=== PATIENT | female | born 1960 | race Caucasian/White ===

== ENCOUNTER → 2016-08-09 | Outpatient (CLI) | payer OTHER ==
[~2016-08-09] MED LIST: BUPIVACAINE HCL 0.25% 30 ML VIAL As Ordered ONE; ISOVUE-M 300 61% 15ML VIAL (Q9967) As Ordered ONE; LIDOCAINE 1% SDV INJ 30 ML VIAL As Ordered ONE; TRIAMCINOLONE ACETONIDE SUSP 40 MG/ML VIAL (J3301) As Ordered ONE; diazePAM 5 MG TAB As Ordered ONE; oxyCODONE 5MG TAB As Ordered ONE
--- NOTE | 2016-08-09 15:09 | REP ---
Partial SI joint series: Two views. History: Bilateral SI joint injection for pain. 9 seconds of fluoroscopy time is reported. Findings: A sequence of two fluoroscopically obtained intraprocedural spot radiographs document needle position and contrast injection for SI joint injection procedures. Signed by Felipe Bai MD 08/09/2016 03:35 P
--- NOTE | 2016-08-11 00:19 | ECWPNPC ---
PATIENT NAME: ONEYDA REYES : 1960 GENDER: FEMALE VISIT DATE: 08/09/2016 DISCHARGE DATE: 08/09/16 1306 VISIT LOCKED DATE TIME: PHYSICIAN: GRECIA SCOTT RESOURCE: GRECIA SCOTT REASON FOR APPOINTMENT 1. SIJ HISTORY OF PRESENT ILLNESS HISTORY OF PRESENT ILLNESS: PAIN THE PATIENT DESCRIBES THE PAIN... FALL RISK SCREENING: SCREENING :NO FALLS IN THE PAST YEAR CURRENT MEDICATIONS TAKING METOPROLOL TARTRATE 100 MG TABLET 1 TABLET WITH FOOD ORALLY TWICE A DAY, NOTES: 08/09 8AM TAKING TRIAMTERENE-HCTZ 37.5-25 MG TABLET 1 TABLET IN THE MORNING ORALLY ONCE A DAY, NOTES: 08/09 8AM TAKING LISINOPRIL 10 MG TABLET 1 TABLET ORALLY ONCE A DAY, NOTES: 08/09 8AM TAKING CITALOPRAM HYDROBROMIDE 20 MG TABLET 2 TABLETS ORALLY ONCE A DAY, NOTES: 08/09 8AM TAKING GABAPENTIN 300 MG CAPSULE 1 ORALLY 1 CAP AT BEDTIME, NOTES: 08/09 8AM TAKING ACETAMINOPHEN 500 MG CAPSULE TWO ORALLY AM AND PM, NOTES: 08/09 8AM TAKING SOMA 350 MG TABLET 1 TABLET NEEDED ORALLY ONE AT HS MDD1, NOTES: 08/09 8AM TAKING TIZANIDINE HCL 2 MG TABLET 1 TABLET NEEDED ORALLY FOR SPASMS AND PAIN BEFORE BEDTIME MAY REPEAR IN 4 HRS MDD2, NOTES: 08/09 8AM NOT-TAKING IBUPROFEN 200 MG CAPSULE 3 ORALLY AM AND PM NOT-TAKING VALIUM 10 MG TABLET 1 ORALLY 1 TAB PRE PROC. MDD1 MEDICATION LIST REVIEWED AND RECONCILED WITH THE PATIENT PAST MEDICAL HISTORY HYPERTENSION DEPRESSION SLEEP APNEA, NEVER TESTED ALLERGIES N.K.D.A. SOCIAL HISTORY GENERAL: TOBACCO USE ARE YOU A:NONSMOKER LEARNING BARRIERS / SPECIAL NEEDS ORIENTED TO PLAN OF CARE: PATIENT, PAIN MANAGEMENT PATIENT, ORIENTED TO PLAN OF CARE: PATIENT, PAIN MANAGEMENT PATIENT. NEW PATIENT PAIN DIARY TODAY'S VISITNOTES FROM 0-10, WHAT LEVEL IS YOUR PAIN TODAY?0 PAIN CLINIC PFS, CLERGY, PUBLIC HEALTH REFERRALS PFS REFERRAL NEEDED?NO CLERGY REFERRAL NEEDED?NO PUBLIC HEALTH REFERRAL NEEDED?NO WAS THE PROVIDER NOTIFIED OF ANY PERTINENT INFO?NO PFS REFERRAL NEEDED?NO CLERGY REFERRAL NEEDED?NO PUBLIC HEALTH REFERRAL NEEDED?NO WAS THE PROVIDER NOTIFIED OF ANY PERTINENT INFO?NO REVIEW OF SYSTEMS CONSTITUTIONAL: ANY CHANGE IN YOUR MEDICAL CONDITION? NO . CHILLS NO . FEVER NO . INFECTION: DO YOU HAVE NEW INFECTIONS? NO . DO YOU HAVE HISTORY OF MRSA? NO . MUSCULOSKELETAL: ANY NEW PATTERNS OF PAIN OR NUMBNESS? NO . GASTROENTEROLOGY: ANY NEW CHANGE IN BOWEL CONTROL? NO . GENITOURINARY: ANY NEW CHANGE IN BLADDER CONTROL? NO . IS THERE A CHANCE YOU COULD BE ? NO . HEMATOLOGY/LYMPH: DO YOU TAKE ANY BLOOD THINNERS? (FOR EXAMPLE- COUMADIN, PLAVIX, AGGRENOX, PLATEL, PRADAXA, OR XARELTO) NO . WHEN WAS YOUR LAST DOSE? DATE: TIME: . NEUROLOGY: HAVE YOU FALLEN IN THE PAST 6 MONTHS? NO . ANY NEW EXTREMITY NUMBNESS OR WEAKNESS? NO . CARDIOLOGY: DO YOU HAVE A PACEMAKER OR DEFIBRILLATOR? NO . RESPIRATORY: HAVE YOU BEEN SICK IN THE PAST WEEK? NO . FEVER NO . FLU LIKE SYMPTOMS? NO . COUGH NO . INTEGUMENTARY: DO YOU HAVE ANY RASHES OR OPEN SORES? NO . ALLERGIC/IMMUNO: ARE YOU ALLERGIC TO SHELLFISH OR IV DYE? NO . ANY NEW ALLERGIES? NO . PSYCHIATRIC: DO YOU HAVE THOUGHTS OF HURTING YOURSELF OR SOMEONE ELSE? NO . ARE YOU ABUSED, NEGLECTED, OR IN AN UNSAFE ENVIRONMENT? NO . ENDOCRINOLOGY: ARE YOU DIABETIC? NO . OTHER: DO YOU NEED ANY PRESCRIPTIONS? NO . IF YES, PLEASE LIST: ____ . ANY NEW PROBLEMS WITH YOUR MEDICATIONS? NO . WHEN DID YOU LAST EAT? 08/08 2PM . WHEN DID YOU LAST DRINK? :50AM . WHAT DID YOU LAST DRINK? WATER . NAME OF PERSON DRIVING YOU HOME? GEOVANNY . DO YOU HAVE ANY OTHER QUESTIONS OR CONCERNS PT STATES THAT SHE HAS HAD A TOOTH ACHE FOR LAST TWO WEEKS, NO ANTIBIOTICS TAKEN AT THIS TIME . REVIEWED BY: PROVIDER: . VITAL SIGNS WT 180 LBS, HT 64 IN, BMI 30.89 INDEX, BP 180/100 R ARM MANUAL, REPEAT BP 188/110 L ARM MANUAL, HR 64 /MIN, RR 16 /MIN, TEMP 96.0 F, OXYGEN SAT % 96, SAFE IN ENV? (Y/N) Y, NA INITIALS TL 1057, REVIEWED BY: DSHIGH BP, 180/100, 188/110 MANUAL- TL. ASSESSMENTS SACROILIITIS, NOT ELSEWHERE CLASSIFIED - M46.1 (PRIMARY) PROCEDURES PN SI PRE PROCEDURE DIAGNOSIS SACROILIITIS, SACROILIAC JOINT DYSFUNCTION POST PROCEDURE DIAGNOSIS SACROILIITIS, SACROILIAC JOINT DYSFUNCTION PROCEDURE BILATERAL SACROILIAC JOINT BLOCK SURGEON DR. GRECIA SCOTT HOME ADMINISTRATOR NONE ANESTHESIA LOCAL PRE PROCEDURE NOTE PATIENT WITH HISTORY OF CHRONIC LOW BACK PAIN. I EVALUATED THE PATIENT AND REVIEWED THE CHART. I WENT OVER THE RISKS, ALTERNATIVES, AND BENEFITS ASSOCIATED WITH THIS PROCEDURE. THE PATIENT WOULD LIKE TO PROCEED AND GAVE CONSENT TO PERFORM THE PROCEDURE. THE PATIENT DENIES UNEXPLAINABLE WEIGHT LOSS, FEVER, CHILLS, OR NEW CHANGES IN URINARY OR BOWEL CONTROL DESCRIPTION OF PROCEDURE THE PATIENT WAS BROUGHT TO THE PROCEDURE ROOM AND PLACED IN THE PRONE POSITION. THE LUMBOSACRAL AREA WAS CLEANED WITH CHLORAPREP SOLUTION AND DRAPED ASEPTICALLY. THE PROCEDURE WAS DONE UNDER STERILE CONDITIONS. I CHECKED LATERALITY AND THE LEVEL WHERE THE PROCEDURE WAS GOING TO BE PERFORMED WITH THE PATIENT AND THE SUPPORTING STAFF AT THE MOMENT OF THE TIME OUT IN THE PROCEDURE ROOM. UNDER FLUOROSCOPIC GUIDANCE, TARGET POINT WAS SELECTED AT THE LOWER BORDER OF THE RIGHT AND LEFT SACROILIAC JOINT. TARGET POINT WAS SELECTED AFTER MEDIAL ROTATION AND TILT OF THE MAGNIFIER OF THE C-ARM. LIDOCAINE WAS USED TO NUMB THE SKIN AND SUBCUTANEOUS TISSUE BELOW IT. A SPINAL NEEDLE, 22-GAUGE, WAS ADVANCED UNDER FLUOROSCOPIC GUIDANCE AND FOLLOWING PATIENT FEEDBACK UNTIL THE TARGET AREA WAS TOUCHED. THE POSITION OF THE NEEDLE WAS VERIFIED WITH AP AND LATERAL VIEWS. AFTER PROPER POSITION OF THE NEEDLE WAS ACHIEVED, ISOVUE M DYE 30%, 0.25 ML, WAS INJECTED SHOWING SPREAD OF THE DYE. THEN, A SOLUTION OF 20 MG OF KENALOG WAS INJECTED IN RIGHT JOINT WITH 3 ML OF BUPIVACAINE 0.125%. THERE WAS NO EVIDENCE OF BLOOD, PARESTHESIA OR CEREBROSPINAL FLUID DURING THE PROCEDURE. THE PATIENT WAS SENT TO THE RECOVERY ROOM. THE PATIENT WAS MOVING THE EXTREMITIES AND DOING WELL. THERE WAS NO COMPLICATION DURING THE PROCEDURE. FLUOROSCOPY TIME WAS 9 SECONDS POST PROCEDURE NOTE THE PATIENT WILL BE SEEN IN A FOLLOW UP IN THE NEXT FEW WEEKS. INSTRUCTIONS WERE GIVEN, QUESTIONS WERE ANSWERED, AND THE PATIENT EXPRESSED UNDERSTANDING AND AGREED WITH THE PLAN. I, ADRIENNE MERCEDES, DOCUMENTED THE ABOVE INFORMATION ACTING A SCRIBE FOR DR. SCOTT. I HAVE REVIEWED THE ABOVE DOCUMENT, WRITTEN BY ADRIENNE FARIA AND I VERIFY THAT IT IS ACCURATE PN WORKMANS' COMP OPINION IN YOUR OPINION, WAS THE INCIDENT THAT THE PATIENT DESCRIBED THE COMPETENT MEDICAL CAUSE OF THIS INJURY/ILLNESS? YES ARE THE PATIENT'S COMPLAINTS CONSISTENT WITH HIS/HER HISTORY OF THE INJURY/ILLNESS? YES IS THE PATIENT'S HISTORY OF THE INJURY/ILLNESS CONSISTENT WITH YOUR OBJECTIVE FINDING? YES WHAT IS THE PERCENTAGE OF TEMPORARY IMPAIRMENT? MODERATE TO MARKED = 66.7% IS THE PATIENT WORKING? NO DOCTOR ON SITE: GRECIA MAYES MD [facility] FLUORO GUIDANCE (PAIN)[id number] PROCEDURE CODES 33796 INJECT SACROILIAC JOINT 6045F RADXPS IN END [id number] PXD FOLLOW UP 3 WEEKS ELECTRONICALLY SIGNED BY GRECIA SCOTT MD ON 08/10/2016 AT 02:09 PM EST DISCLAIMER : THIS IS A VISIT SUMMARY EXTRACTED FROM THE [employer] CHART. IT IS NOT A COPY OF THE [employer] PROGRESS NOTE. RC
== END ==
LOC: M PAIN 10:50
PROVIDERS: ATTEND Anesthesiology
DX: G89.29 Other chronic pain (principal); M46.1 Sacroiliitis, not elsewhere classified; M53.88 Other specified dorsopathies, sacral and sacrococcygeal region; I10 Essential (primary) hypertension; F32.9 Major depressive disorder, single episode, unspecified; Z79.1 Long term (current) use of non-steroidal anti-inflammatories (NSAID); Z79.891 Long term (current) use of opiate analgesic; Z79.899 Other long term (current) drug therapy
CPT/HCPCS: G0260; J3301; Q9967

== ENCOUNTER → 2016-09-29 | Outpatient (CLI) | payer OTHER ==
--- NOTE | 2016-10-09 23:33 | ECWPNPC ---
PATIENT NAME: ONEYDA REYES : 1960 GENDER: FEMALE VISIT DATE: 09/29/2016 DISCHARGE DATE: 09/29/16 1137 VISIT LOCKED DATE TIME: PHYSICIAN: GRECIA SCOTT RESOURCE: GRECIA SCOTT REASON FOR APPOINTMENT 1. WC BACK PAIN HISTORY OF PRESENT ILLNESS HISTORY OF PRESENT ILLNESS: PAIN THE PATIENT DESCRIBES THE PAIN... 55 YEAR OLD FEMALE PATIENT WITH HISTORY OF CHRONIC BACK PAIN. PATIENT DESCRIBES THE PAIN BURNING, SHARP, STABBING, THROBBING, AND HAVING IT ALL THE TIME WITH A PAIN SCORE OF 8/10. 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 PATIENT RECEIVED A SACROILIAC JOINT INJECTION ON 08/09/16 AND STATES SHE HAD RELIEF FOR THREE DAYS. CURRENTLY THE PATIENT IS USING IBUPROFEN, TYLENOL, GABAPENTIN, SOMA, AND TIZANIDINE FOR PAIN AND STATES THAT THE MEDICATION KEEPS HER FUNCTIONAL AND MOBILE. PATIENT STATES THAT ANY TYPE OF MOVEMENT OR ACTIVITY INCREASES THE PAIN IN HER LOWER BACK AND MEDICATIONS AND REST HELP TO RELIEVE THE PAIN. FALL RISK SCREENING: SCREENING :NO FALLS IN THE PAST YEAR CURRENT MEDICATIONS TAKING METOPROLOL TARTRATE 100 MG TABLET 1 TABLET WITH FOOD ORALLY TWICE A DAY, NOTES: 08/09 8AM TAKING TRIAMTERENE-HCTZ 37.5-25 MG TABLET 1 TABLET IN THE MORNING ORALLY ONCE A DAY, NOTES: 08/09 8AM TAKING LISINOPRIL 10 MG TABLET 1 TABLET ORALLY ONCE A DAY, NOTES: 08/09 8AM TAKING CITALOPRAM HYDROBROMIDE 20 MG TABLET 2 TABLETS ORALLY ONCE A DAY, NOTES: 08/09 8AM TAKING GABAPENTIN 300 MG CAPSULE 1 ORALLY 1 CAP AT BEDTIME, NOTES: 08/09 8AM TAKING ACETAMINOPHEN 500 MG CAPSULE TWO ORALLY AM AND PM, NOTES: 08/09 8AM TAKING SOMA 350 MG TABLET 1 TABLET NEEDED ORALLY ONE AT HS MDD1, NOTES: 08/09 8AM TAKING TIZANIDINE HCL 2 MG TABLET 1 TABLET NEEDED ORALLY FOR SPASMS AND PAIN BEFORE BEDTIME MAY REPEAR IN 4 HRS MDD2, NOTES: 08/09 8AM TAKING METOPROLOL TARTRATE 50 MG TABLET 1 TABLET WITH FOOD ORALLY TWICE A DAY NOT-TAKING IBUPROFEN 200 MG CAPSULE 3 ORALLY AM AND PM NOT-TAKING VALIUM 10 MG TABLET 1 ORALLY 1 TAB PRE PROC. MDD1 MEDICATION LIST REVIEWED AND RECONCILED WITH THE PATIENT PAST MEDICAL HISTORY HYPERTENSION DEPRESSION SLEEP APNEA, NEVER TESTED ALLERGIES N.K.D.A. SURGICAL HISTORY NO SURGICAL HISTORY DOCUMENTED. FAMILY HISTORY NO FAMILY HISTORY DOCUMENTED. SOCIAL HISTORY GENERAL: TOBACCO USE ARE YOU A:NONSMOKER LEARNING BARRIERS / SPECIAL NEEDS ORIENTED TO PLAN OF CARE: PATIENT, PAIN MANAGEMENT PATIENT, ORIENTED TO PLAN OF CARE: PATIENT, PAIN MANAGEMENT PATIENT. NEW PATIENT PAIN DIARY TODAY'S VISITNOTES FROM 0-10, WHAT LEVEL IS YOUR PAIN TODAY?0 PAIN CLINIC PFS, CLERGY, PUBLIC HEALTH REFERRALS PFS REFERRAL NEEDED?NO CLERGY REFERRAL NEEDED?NO PUBLIC HEALTH REFERRAL NEEDED?NO WAS THE PROVIDER NOTIFIED OF ANY PERTINENT INFO?NO PFS REFERRAL NEEDED?NO CLERGY REFERRAL NEEDED?NO PUBLIC HEALTH REFERRAL NEEDED?NO WAS THE PROVIDER NOTIFIED OF ANY PERTINENT INFO?NO HOSPITALIZATION/MAJOR DIAGNOSTIC PROCEDURE NO HOSPITALIZATION HISTORY. REVIEW OF SYSTEMS CONSTITUTIONAL: ANY CHANGE IN YOUR MEDICAL CONDITION? NO . CHILLS NO . FEVER NO . INFECTION: DO YOU HAVE NEW INFECTIONS? NO . DO YOU HAVE HISTORY OF MRSA? NO . MUSCULOSKELETAL: ANY NEW PATTERNS OF PAIN OR NUMBNESS? NO . GASTROENTEROLOGY: ANY NEW CHANGE IN BOWEL CONTROL? NO . GENITOURINARY: ANY NEW CHANGE IN BLADDER CONTROL? NO . IS THERE A CHANCE YOU COULD BE ? NO . HEMATOLOGY/LYMPH: DO YOU TAKE ANY BLOOD THINNERS? (FOR EXAMPLE- COUMADIN, PLAVIX, AGGRENOX, PLATEL, PRADAXA, OR XARELTO) NO . WHEN WAS YOUR LAST DOSE? DATE: TIME: . NEUROLOGY: HAVE YOU FALLEN IN THE PAST 6 MONTHS? NO . ANY NEW EXTREMITY NUMBNESS OR WEAKNESS? NO . CARDIOLOGY: DO YOU HAVE A PACEMAKER OR DEFIBRILLATOR? NO . RESPIRATORY: HAVE YOU BEEN SICK IN THE PAST WEEK? NO . FEVER NO . FLU LIKE SYMPTOMS? NO . COUGH NO . INTEGUMENTARY: DO YOU HAVE ANY RASHES OR OPEN SORES? NO . ALLERGIC/IMMUNO: ARE YOU ALLERGIC TO SHELLFISH OR IV DYE? NO . ANY NEW ALLERGIES? NO . PSYCHIATRIC: DO YOU HAVE THOUGHTS OF HURTING YOURSELF OR SOMEONE ELSE? NO . ARE YOU ABUSED, NEGLECTED, OR IN AN UNSAFE ENVIRONMENT? NO . ENDOCRINOLOGY: ARE YOU DIABETIC? NO . OTHER: DO YOU NEED ANY PRESCRIPTIONS? NO . IF YES, PLEASE LIST: ____ . ANY NEW PROBLEMS WITH YOUR MEDICATIONS? NO . WHEN DID YOU LAST EAT? ____ . WHEN DID YOU LAST DRINK? ____ . WHAT DID YOU LAST DRINK? ____ . NAME OF PERSON DRIVING YOU HOME? ____ . DO YOU HAVE ANY OTHER QUESTIONS OR CONCERNS NO . REVIEWED BY: PROVIDER: GRECIA SCOTT MD . VITAL SIGNS WT 186.4 LBS, HT 64 IN, BMI 31.99 INDEX, BP 141/84 MM HG, HR 67 /MIN, RR 16 /MIN, TEMP 96.3 F, OXYGEN SAT % 98%, NA INITIALS SC 10:00, REVIEWED BY: VD. EXAMINATION : PATIENT IS ALERT O X 3 AND COOPERATIVE. TENDERNESS IN THE LOWER BACK AND PARASPINAL MUSCLE GROUP. TENDERNESS IN THE LEFT SACROILIAC JOINT AREA. FLEXION OF THE BACK 80 DEGREES IN FLEXION AND EXTENSION AT 10 DEGREE. MORE COMPLAINTS WITH EXTENSION THEN FLEXION. LEFT LEG WEAKER. MRI DONE ON 01/18/2016 OF THE LUMBAR SPINE SHOWS A DISC HERNIATION AT L5-S1 AND FACET HYPERTROPHY. ASSESSMENTS INTERVERTEBRAL DISC DISORDERS WITH RADICULOPATHY, LUMBOSACRAL REGION - M51.17 (PRIMARY) TREATMENT INTERVERTEBRAL DISC DISORDERS WITH RADICULOPATHY, LUMBOSACRAL REGION NOTES: WE DISCUSSED SEVERAL ISSUES WITH MRS. REYES PAIN MANAGEMENT CASE. PATIENT WILL CONTINUE WITH THE SAME MEDICATION REGIME BEFORE. PATIENT IS USING THE GABAPENTIN FOR THE NEUROPATHIC PAIN, TIZANIDINE NEEDED FOR THE SPASMS AND TO AID IN SLEEPING AT NIGHT, AND THE SOMA NEEDED FOR THE SPASTICITY. WITHOUT THE MEDICATION THE PATIENT STATES THAT SHE WOULD NOT BE ABLE TO FUNCTION. DUE TO THE DISC BULGE I WOULD LIKE TO MOVE FORWARD WITH A LUMBAR EPIDURAL. WE DISCUSSED THE RISKS, BENENFITS, AND ALTNERATIVES OF THE INJECTION AND THE PATIENT WOULD LIKE TO PROCEED AT THIS TIME. PATIENT STATES THAT SHE WOULD ALSO EVENTUALLY LIKE TO BE REFERRED FOR A SURGICAL CONSULT BUT NOT AT THIS TIME. INSTRUCTIONS WERE GIVEN, QUESTIONS WERE ANSWERED, PATIENT REPORTS UNDERSTANDING AND AGREES WITH THE PLAN. I, ADRIENNE MERCEDES, DOCUMENTED THE ABOVE INFORMATION ACTING A SCRIBE FOR DR. SCOTT. I HAVE REVIEWED THE ABOVE DOCUMENT, WRITTEN BY ADRIENNE FARIA AND I VERIFY THAT IT IS ACCURATE. PROCEDURES PN WORKMANS' COMP OPINION IN YOUR OPINION, WAS THE INCIDENT THAT THE PATIENT DESCRIBED THE COMPETENT MEDICAL CAUSE OF THIS INJURY/ILLNESS? YES ARE THE PATIENT'S COMPLAINTS CONSISTENT WITH HIS/HER HISTORY OF THE INJURY/ILLNESS? YES IS THE PATIENT'S HISTORY OF THE INJURY/ILLNESS CONSISTENT WITH YOUR OBJECTIVE FINDING? YES WHAT IS THE PERCENTAGE OF TEMPORARY IMPAIRMENT? MODERATE TO MARKED = 66.7% IS THE PATIENT WORKING? NO DOCTOR ON SITE: GRECIA MAYES MD PROCEDURE CODES FA211 ESTABILISHED PATIENT [facility] FACILITY CHARGE G8427 DOC MEDS VERIFIED W/PT OR RE G8730 PAIN ASSESS POS TOOL F/U PLAN DOC DISPOSITION & COMMUNICATION FOLLOW UP LESI AFTER APPROVAL ELECTRONICALLY SIGNED BY GRECIA SCOTT MD ON 10/09/2016 AT 09:12 PM EDT DISCLAIMER : THIS IS A VISIT SUMMARY EXTRACTED FROM THE [employer] CHART. IT IS NOT A COPY OF THE [employer] PROGRESS NOTE. RC
== END ==
LOC: M PAIN 10:00
PROVIDERS: ATTEND Anesthesiology
DX: Z09 Encounter for follow-up examination after completed treatment for conditions other than malignant neoplasm (principal); G89.29 Other chronic pain; M51.17 Intervertebral disc disorders with radiculopathy, lumbosacral region; I10 Essential (primary) hypertension; E32.9 Disease of thymus, unspecified; G47.30 Sleep apnea, unspecified; Z79.1 Long term (current) use of non-steroidal anti-inflammatories (NSAID); Z79.899 Other long term (current) drug therapy

== ENCOUNTER → 2016-11-29 | Outpatient (CLI) | payer OTHER ==
--- NOTE | 2016-12-11 23:50 | ECWPNPC ---
PATIENT NAME: ONEYDA REYES : 1960 GENDER: FEMALE VISIT DATE: 11/29/2016 DISCHARGE DATE: 11/29/16 1357 VISIT LOCKED DATE TIME: PHYSICIAN: GRECIA SCOTT RESOURCE: GRECIA SCOTT REASON FOR APPOINTMENT 1. LOW BACK PAIN W/C HISTORY OF PRESENT ILLNESS GENERAL: 55 YEAR OLD FEMALE PATIENT WITH HISTORY OF CHRONIC BACK PAIN. PATIENT DESCRIBES THE PAIN BURNING, SHARP, STABBING, THROBBING, AND HAVING IT ALL THE TIME WITH A PAIN SCORE OF 8/10. 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 CURRENTLY THE PATIENT IS USING IBUPROFEN, TYLENOL, AND GABAPENTIN FOR PAIN AND STATES THAT THE MEDICATION KEEPS HER FUNCTIONAL AND MOBILE. MRS. REYES STATES THAT SHE DOES NOT WANT TO MOVE FORWARD WITH A LUMBAR EPIDURAL SHE HAS HAD BEEN BEFORE AND STATES THAT THEY DO NOT AID IN PAIN RELIEF. PATIENT STATES THAT ANY TYPE OF MOVEMENT OR ACTIVITY INCREASES THE PAIN IN HER LOWER BACK AND MEDICATIONS AND REST HELP TO RELIEVE THE PAIN. CURRENT MEDICATIONS TAKING METOPROLOL TARTRATE 100 MG TABLET 1 TABLET WITH FOOD ORALLY TWICE A DAY, NOTES: 08/09 8AM TAKING TRIAMTERENE-HCTZ 37.5-25 MG TABLET 1 TABLET IN THE MORNING ORALLY ONCE A DAY, NOTES: 08/09 8AM TAKING LISINOPRIL 10 MG TABLET 1 TABLET ORALLY ONCE A DAY, NOTES: 08/09 8AM TAKING CITALOPRAM HYDROBROMIDE 20 MG TABLET 2 TABLETS ORALLY ONCE A DAY, NOTES: 08/09 8AM TAKING GABAPENTIN 300 MG CAPSULE 1 ORALLY 1 CAP AT BEDTIME, NOTES: 08/09 8AM TAKING ACETAMINOPHEN 500 MG CAPSULE TWO ORALLY AM AND PM, NOTES: 08/09 8AM TAKING SOMA 350 MG TABLET 1 TABLET NEEDED ORALLY ONE AT HS MDD1, NOTES: 08/09 8AM TAKING TIZANIDINE HCL 2 MG TABLET 1 TABLET NEEDED ORALLY FOR SPASMS AND PAIN BEFORE BEDTIME MAY REPEAR IN 4 HRS MDD2, NOTES: 08/09 8AM TAKING METOPROLOL TARTRATE 50 MG TABLET 1 TABLET WITH FOOD ORALLY TWICE A DAY NOT-TAKING IBUPROFEN 200 MG CAPSULE 3 ORALLY AM AND PM NOT-TAKING VALIUM 10 MG TABLET 1 ORALLY 1 TAB PRE PROC. MDD1 MEDICATION LIST REVIEWED AND RECONCILED WITH THE PATIENT PAST MEDICAL HISTORY HYPERTENSION DEPRESSION SLEEP APNEA, NEVER TESTED ALLERGIES N.K.D.A. SURGICAL HISTORY NO SURGICAL HISTORY DOCUMENTED. FAMILY HISTORY NO FAMILY HISTORY DOCUMENTED. SOCIAL HISTORY GENERAL: TOBACCO USE ARE YOU A:NONSMOKER LEARNING BARRIERS / SPECIAL NEEDS ORIENTED TO PLAN OF CARE: PATIENT, PAIN MANAGEMENT PATIENT, ORIENTED TO PLAN OF CARE: PATIENT, PAIN MANAGEMENT PATIENT. NEW PATIENT PAIN DIARY TODAY'S VISITNOTES FROM 0-10, WHAT LEVEL IS YOUR PAIN TODAY?0 PAIN CLINIC PFS, CLERGY, PUBLIC HEALTH REFERRALS PFS REFERRAL NEEDED?NO CLERGY REFERRAL NEEDED?NO PUBLIC HEALTH REFERRAL NEEDED?NO WAS THE PROVIDER NOTIFIED OF ANY PERTINENT INFO?NO PFS REFERRAL NEEDED?NO CLERGY REFERRAL NEEDED?NO PUBLIC HEALTH REFERRAL NEEDED?NO WAS THE PROVIDER NOTIFIED OF ANY PERTINENT INFO?NO HOSPITALIZATION/MAJOR DIAGNOSTIC PROCEDURE NO HOSPITALIZATION HISTORY. VITAL SIGNS WT 180.8 LBS, HT 64 IN, BMI 31.03 INDEX, BP 127/74 MM HG, HR 63 /MIN, RR 16 /MIN, TEMP 98.3 F, OXYGEN SAT % 99%, NA INITIALS TL 1253. EXAMINATION GENERAL: PATIENT IS ALERT O X 3 AND COOPERATIVE. TENDERNESS IN THE LOWER BACK AND PARASPINAL MUSCLE GROUP. TENDERNESS IN THE LEFT SACROILIAC JOINT AREA. FLEXION OF THE BACK 15 DEGREES IN FLEXION AND EXTENSION AT 10 DEGREE. MORE COMPLAINTS WITH EXTENSION THEN FLEXION. LEFT LEG WEAKER. MRI DONE ON 01/18/2016 OF THE LUMBAR SPINE SHOWS A DISC HERNIATION AT L5-S1 AND FACET HYPERTROPHY. ASSESSMENTS INTERVERTEBRAL DISC DISORDERS WITH RADICULOPATHY, LUMBAR REGION - M51.16 (PRIMARY) INTERVERTEBRAL DISC DISORDERS WITH RADICULOPATHY, LUMBOSACRAL REGION - M51.17 SACROILIITIS, NOT ELSEWHERE CLASSIFIED - M46.1 TREATMENT INTERVERTEBRAL DISC DISORDERS WITH RADICULOPATHY, LUMBAR REGION REFILL GABAPENTIN CAPSULE, 300 MG, 1, ORALLY, 1 CAP AT BEDTIME, 30 DAY(S), 30, REFILLS 2, NOTES: 08/09 8AM REFILL TIZANIDINE HCL TABLET, 4 MG, 1 TABLET NEEDED, ORALLY, BEFORE BEDTIME MAY REPEAR IN 4 HRS MDD2, 30 DAY(S), 50, REFILLS 2, NOTES: 08/09 8AM START IBUPROFEN TABLET, 800 MG, 1 TABLET WITH FOOD OR MILK, ORALLY, EVERY 6 HRS NEEDED FOR PAIN MDD3, 30 DAY(S), 60, REFILLS 2 NOTES: LUMBAR EPIDURAL INJECTION: YOUR PROCEDURE MATERIAL WAS PRINTED,WHAT IS LUMBAR EPIDURAL INJECTION? MATERIAL WAS PRINTED. CLINICAL NOTES: WE DISCUSSED SEVERAL ISSUES WITH MRS. REYES PAIN MANAGEMENT CASE. AT THIS TIME THE PATIENT WILL CONTINUE WITH THE SAME MEDICATION REGIME BEFORE. PATIENT STATES THAT SHE USES IBUPROFEN FOR THE INFLAMMATION AND GABAPENTIN FOR THE NEUROPATHIC PAIN. WE DISCUSSED POSSIBLE INJECTIONS THAT MAY AID THE PATIENT IN PAIN RELIEF HER PAIN IS GETTING SEVERE AND IT IS DIFFICULT TO DO EVERYDAY THINGS AT THIS TIME. AFTER VIEWING THE MRI AND WHERE THE PATIENT'S PAIN IS LOCATED I BELIEVE SHE WOULD BENEFIT MOST FROM A LUMBAR EPIDURAL. WE DISCUSSED THE RISKS, BENEFITS, AND ALTNERATIVES OF THE INJECTION AND THE PATIENT WOULD LIKE TO MOVE FORWARD WITH THE INJECTION. INSTRUCTIONS WERE GIVEN, QUESTIONS WERE ANSWERED, PATIENT REPORTS UNDERSTANDING AND AGREES WITH THE PLAN. I, ADRIENNE MERCEDES, DOCUMENTED THE ABOVE INFORMATION ACTING A SCRIBE FOR DR. SCOTT. I HAVE REVIEWED THE ABOVE DOCUMENT, WRITTEN BY ADRIENNE VALLEJOIBSangita AND I VERIFY THAT IT IS ACCURATE. PROCEDURES PN WORKMANS' COMP OPINION IN YOUR OPINION, WAS THE INCIDENT THAT THE PATIENT DESCRIBED THE COMPETENT MEDICAL CAUSE OF THIS INJURY/ILLNESS? YES ARE THE PATIENT'S COMPLAINTS CONSISTENT WITH HIS/HER HISTORY OF THE INJURY/ILLNESS? YES IS THE PATIENT'S HISTORY OF THE INJURY/ILLNESS CONSISTENT WITH YOUR OBJECTIVE FINDING? YES WHAT IS THE PERCENTAGE OF TEMPORARY IMPAIRMENT? MODERATE TO MARKED = 66.7% IS THE PATIENT WORKING? NO DOCTOR ON SITE: GRECIA MAYES MD PROCEDURE CODES FA211 ESTABILISHED PATIENT [facility] FACILITY CHARGE G8427 DOC MEDS VERIFIED W/PT OR RE G8730 PAIN ASSESS POS TOOL F/U PLAN DOC DISPOSITION & COMMUNICATION FOLLOW UP LESI AFTER APPROVAL ELECTRONICALLY SIGNED BY GRECIA SCOTT MD ON 12/11/2016 AT 06:43 PM EDT DISCLAIMER : THIS IS A VISIT SUMMARY EXTRACTED FROM THE [employer] CHART. IT IS NOT A COPY OF THE [employer] PROGRESS NOTE. RC
== END | disposition home or self-care (01) ==
LOC: M PAIN 13:00
PROVIDERS: ATTEND Anesthesiology
DX: G89.29 Other chronic pain (principal); M51.16 Intervertebral disc disorders with radiculopathy, lumbar region; M51.17 Intervertebral disc disorders with radiculopathy, lumbosacral region; M46.1 Sacroiliitis, not elsewhere classified; I10 Essential (primary) hypertension; F33.9 Major depressive disorder, recurrent, unspecified; G47.30 Sleep apnea, unspecified; Z79.899 Other long term (current) drug therapy

== ENCOUNTER → 2017-01-07 | Outpatient (CLI) | payer OTHER ==
[~2017-01-07] MED LIST changes: -BUPIVACAINE HCL 0.25% 30 ML VIAL As Ordered ONE; -TRIAMCINOLONE ACETONIDE SUSP 40 MG/ML VIAL (J3301) As Ordered ONE; -diazePAM 5 MG TAB As Ordered ONE; +methylPREDNISolone SUSP 40 MG/ML (DEPO-medrol) VIAL (J1030) As Ordered ONE; -oxyCODONE 5MG TAB As Ordered ONE
--- NOTE | 2017-01-07 15:47 | REP ---
FLUOROSCOPIC GUIDED SPINAL INJECTION: The films were reviewed with Dr. Contreras. The patient has a history of low back pain. The portable C-arm was provided in the OR for Dr. Pearce for fluoroscopic guidance. Four intraoperative fluoroscopic spot films were obtained for needle placement verification for lumbar epidural injection. The films are on the PACs system and are available for review. 11 seconds of fluoroscopic time was utilized for this procedure. Reviewed by TERRI Ramos 01/07/2017 03:57 PEdited and Signed by Pancho Contreras MD 01/07/2017 05:29 P
--- NOTE | 2017-01-13 23:46 | ECWPNPC ---
PATIENT NAME: ONEYDA REYES : 1960 GENDER: FEMALE VISIT DATE: 01/07/2017 DISCHARGE DATE: 01/07/17 1254 VISIT LOCKED DATE TIME: PHYSICIAN: GRECIA SCOTT RESOURCE: GRECIA SCOTT REASON FOR APPOINTMENT 1. BACK PAIN HISTORY OF PRESENT ILLNESS HISTORY OF PRESENT ILLNESS: PAIN THE PATIENT DESCRIBES THE PAIN... FALL RISK SCREENING: SCREENING :NO FALLS IN THE PAST YEAR CURRENT MEDICATIONS TAKING METOPROLOL TARTRATE 100 MG TABLET 1 TABLET WITH FOOD ORALLY TWICE A DAY, NOTES: 01/07/17 0700 TAKING TRIAMTERENE-HCTZ 37.5-25 MG TABLET 1 TABLET IN THE MORNING ORALLY ONCE A DAY, NOTES: 01/07/17 0700 TAKING LISINOPRIL 10 MG TABLET 1 TABLET ORALLY ONCE A DAY, NOTES: 01/07/17 07 TAKING CITALOPRAM HYDROBROMIDE 20 MG TABLET 2 TABLETS ORALLY ONCE A DAY, NOTES: 01/07/17 0700 TAKING ACETAMINOPHEN 500 MG CAPSULE TWO ORALLY AM AND PM, NOTES: 01/06/17 1700 TAKING SOMA 350 MG TABLET 1 TABLET NEEDED ORALLY ONE AT HS MDD1, NOTES: 01/07/16 2100 TAKING METOPROLOL TARTRATE 50 MG TABLET 1 TABLET WITH FOOD ORALLY TWICE A DAY, NOTES: 0700 TAKING GABAPENTIN 300 MG CAPSULE 1 ORALLY 1 CAP AT BEDTIME, NOTES: 01/06/17 2100 TAKING TIZANIDINE HCL 4 MG TABLET 1 TABLET NEEDED ORALLY BEFORE BEDTIME MAY REPEAR IN 4 HRS MDD2, NOTES: 01/06 2100 NOT-TAKING IBUPROFEN 800 MG TABLET 1 TABLET WITH FOOD OR MILK ORALLY EVERY 6 HRS NEEDED FOR PAIN MDD3 NOT-TAKING IBUPROFEN 200 MG CAPSULE 3 ORALLY AM AND PM NOT-TAKING VALIUM 10 MG TABLET 1 ORALLY 1 TAB PRE PROC. MDD1 MEDICATION LIST REVIEWED AND RECONCILED WITH THE PATIENT PAST MEDICAL HISTORY HYPERTENSION DEPRESSION SLEEP APNEA, NEVER TESTED ALLERGIES N.K.D.A. REVIEW OF SYSTEMS REVIEWED BY: PROVIDER: . CONSTITUTIONAL: ANY CHANGE IN YOUR MEDICAL CONDITION? NO . CHILLS NO . FEVER NO . INFECTION: DO YOU HAVE NEW INFECTIONS? NO . DO YOU HAVE HISTORY OF MRSA? NO . MUSCULOSKELETAL: ANY NEW PATTERNS OF PAIN OR NUMBNESS? NO . GASTROENTEROLOGY: ANY NEW CHANGE IN BOWEL CONTROL? NO . GENITOURINARY: ANY NEW CHANGE IN BLADDER CONTROL? NO . IS THERE A CHANCE YOU COULD BE ? NO . HEMATOLOGY/LYMPH: DO YOU TAKE ANY BLOOD THINNERS? (FOR EXAMPLE- COUMADIN, PLAVIX, AGGRENOX, PLATEL, PRADAXA, OR XARELTO) NO . WHEN WAS YOUR LAST DOSE? DATE: TIME: . NEUROLOGY: HAVE YOU FALLEN IN THE PAST 6 MONTHS? NO . ANY NEW EXTREMITY NUMBNESS OR WEAKNESS? NO . CARDIOLOGY: DO YOU HAVE A PACEMAKER OR DEFIBRILLATOR? NO . RESPIRATORY: HAVE YOU BEEN SICK IN THE PAST WEEK? NO . FEVER NO . FLU LIKE SYMPTOMS? NO . COUGH NO . INTEGUMENTARY: DO YOU HAVE ANY RASHES OR OPEN SORES? NO . ALLERGIC/IMMUNO: ARE YOU ALLERGIC TO SHELLFISH OR IV DYE? NO . ANY NEW ALLERGIES? NO . PSYCHIATRIC: DO YOU HAVE THOUGHTS OF HURTING YOURSELF OR SOMEONE ELSE? NO . ARE YOU ABUSED, NEGLECTED, OR IN AN UNSAFE ENVIRONMENT? NO . ENDOCRINOLOGY: ARE YOU DIABETIC? NO . OTHER: DO YOU NEED ANY PRESCRIPTIONS? NO . IF YES, PLEASE LIST: ____ . ANY NEW PROBLEMS WITH YOUR MEDICATIONS? NO . WHEN DID YOU LAST EAT? 01/06/17 1900 . WHEN DID YOU LAST DRINK? 01/07/17 0700 . WHAT DID YOU LAST DRINK? WATER . NAME OF PERSON DRIVING YOU HOME? FRIEND, GEOVANNY . DO YOU HAVE ANY OTHER QUESTIONS OR CONCERNS NO . VITAL SIGNS WT 177.0 LBS, HT 64 IN, BMI 30.38 INDEX, BP 117/63 MM HG, HR 60 /MIN, RR 16 /MIN, TEMP 97.3 F, OXYGEN SAT % 98%, NA INITIALS TL 0951, REVIEWED BY: AD. ASSESSMENTS INTERVERTEBRAL DISC DISORDERS WITH RADICULOPATHY, LUMBAR REGION - M51.16 (PRIMARY) PROCEDURES PRE PROCEDURE DIAGNOSIS LUMBAR DISC DISORDER WITH RADICULOPATHY POST PROCEDURE DIAGNOSIS LUMBAR DISC DISORDER WITH RADICULOPATHY PROCEDURE LUMBAR EPIDURAL STEROID INJECTION UNDER FLUOROSCOPIC GUIDANCE SURGEON DR. GRECIA SCOTT RADIATION PROTECTION TECHNICIAN NONE ANESTHESIA LOCAL PRE PROCEDURE NOTE THE PATIENT HAS A HISTORY OF CHRONIC LOW BACK PAIN. I EVALUATE THE PATIENT AND REVIEWED THE CHART. I WENT OVER THE RISKS, ALTERNATIVES, AND BENEFITS ASSOCIATED WITH THIS PROCEDURE. THE PATIENT WOULD LIKE TO PROCEED AND GIVE CONSENT TO PERFORMED THE PROCEDURE. THE PATIENT DENIES UNEXPLAINABLE WEIGHT LOSS, FEVER, CHILLS, OR NEW CHANGES IN URINARY OR BOWEL CONTROL. DESCRIPTION OF PROCEDURE THE PATIENT WAS BROUGHT TO THE PROCEDURE ROOM AND PLACED IN THE PRONE POSITION. THE LUMBOSACRAL AREA WAS CLEANED WITH BETADINE SOLUTION AND DRAPED ASEPTICALLY. THE PROCEDURE WAS DONE UNDER STERILE CONDITIONS. I CHECKED LATERALITY AND THE LEVEL WHERE THE PROCEDURE WAS GOING TO BE PERFORMED WITH THE PATIENT AND THE SUPPORTING STAFF AT THE MOMENT OF THE TIME OUT IN THE PROCEDURE ROOM. UNDER FLUOROSCOPIC GUIDANCE, THE TARGET POINT WAS SELECTED AT THE INTERLAMINAR LEVEL OF L4-L5. LIDOCAINE WAS USED TO NUMB THE SKIN AND THE SUBCUTANEOUS TISSUE BELOW IT. EPIDURAL TUOHY NEEDLE, 17-GAUGE, WAS ADVANCED UNDER FLUOROSCOPIC GUIDANCE AND FOLLOWING PATIENT FEEDBACK UNTIL THE EPIDURAL SPACE WAS REACHED, 7 CM DEEP INTO THE SKIN BY THE LOSS OF RESISTANCE TECHNIQUE. ISOVUE M DYE 30%, 0.25 ML, WAS INJECTED SHOWING ADEQUATE SPREAD OF THE DYE. THEN, A SOLUTION OF 3 ML OF NORMAL SALINE WITH DEPO-MEDROL 60 MG WAS INJECTED SLOWLY FOLLOWING PATIENT FEEDBACK. THERE WAS NO EVIDENCE OF BLOOD, PARESTHESIA OR CEREBROSPINAL FLUID DURING THE PROCEDURE. THE PATIENT WAS SENT TO THE RECOVERY ROOM. THE PATIENT WAS MOVING THE EXTREMITIES AND DOING WELL. THERE WAS NO COMPLICATION DURING THE PROCEDURE. FLUOROSCOPY TIME WAS 11 SECONDS POST PROCEDURE NOTE THE PATIENT WILL BE SEEN IN A FOLLOW UP IN THE NEXT FEW WEEKS. INSTRUCTIONS WERE GIVEN, QUESTIONS WERE ANSWERED, AND THE PATIENT EXPRESSED UNDERSTANDING AND AGREES WITH THE PLAN. I, ADRIENNE MERCEDES, DOCUMENTED THE ABOVE INFORMATION ACTING A SCRIBE FOR DR. SCOTT. I HAVE REVIEWED THE ABOVE DOCUMENT, WRITTEN BY ADRIENNE VALLEJOIBSangita AND I VERIFY THAT IT IS ACCURATE DIAGNOSTIC IMAGING [facility] FLUORO GUIDANCE (PAIN)[id number] PROCEDURE CODES 10520 LUMBAR/SACRAL W/ IMAGING 6045F RADXPS IN END [id number] PXD DISPOSITION & COMMUNICATION FOLLOW UP 3 WEEKS ELECTRONICALLY SIGNED BY GRECIA SCOTT MD ON 01/13/2017 AT 11:11 AM EDT DISCLAIMER : THIS IS A VISIT SUMMARY EXTRACTED FROM THE [employer] CHART. IT IS NOT A COPY OF THE [employer] PROGRESS NOTE. MTDD
== END | disposition home or self-care (01) ==
LOC: M PAIN 10:00
PROVIDERS: ATTEND Anesthesiology
DX: G89.29 Other chronic pain (principal); M51.16 Intervertebral disc disorders with radiculopathy, lumbar region; I10 Essential (primary) hypertension; F33.9 Major depressive disorder, recurrent, unspecified; Z79.899 Other long term (current) drug therapy
CPT/HCPCS: 62323; J1030; Q9967

== ENCOUNTER → 2017-02-25 | Outpatient (CLI) | payer OTHER ==
--- NOTE | 2017-03-14 00:26 | ECWPNPC ---
PATIENT NAME: ONEYDA REYES : 1960 GENDER: FEMALE VISIT DATE: 02/25/2017 DISCHARGE DATE: 02/25/17 1113 VISIT LOCKED DATE TIME: PHYSICIAN: GRECIA SCOTT RESOURCE: GRECIA SCOTT REASON FOR APPOINTMENT 1. WC, LOW BACK PAIN HISTORY OF PRESENT ILLNESS GENERAL: 56 YEAR OLD FEMALE PATIENT WITH HISTORY OF CHRONIC BACK PAIN. PATIENT DESCRIBES THE PAIN BURNING, SHARP, STABBING, THROBBING, AND HAVING IT ALL THE TIME WITH A PAIN SCORE OF 10/10. 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. CURRENTLY THE PATIENT IS USING IBUPROFEN, TYLENOL, AND GABAPENTIN FOR PAIN AND STATES THAT THE MEDICATION KEEPS HER FUNCTIONAL AND MOBILE. PATIENT STATES THAT ANY TYPE OF MOVEMENT OR ACTIVITY INCREASES THE PAIN IN HER LOWER BACK AND MEDICATIONS AND REST HELP TO RELIEVE THE PAIN. CURRENT MEDICATIONS TAKING METOPROLOL TARTRATE 100 MG TABLET 1 TABLET WITH FOOD ORALLY TWICE A DAY, NOTES: 01/07/17 07 TAKING TRIAMTERENE-HCTZ 37.5-25 MG TABLET 1 TABLET IN THE MORNING ORALLY ONCE A DAY, NOTES: 01/07/17 07 TAKING LISINOPRIL 10 MG TABLET 1 TABLET ORALLY ONCE A DAY, NOTES: 01/07/17 07 TAKING CITALOPRAM HYDROBROMIDE 20 MG TABLET 1 TAB ORALLY ONCE A DAY, NOTES: 01/07/17 0700 TAKING ACETAMINOPHEN 500 MG CAPSULE TWO ORALLY AM AND PM, NOTES: 01/06/17 1700 TAKING SOMA 350 MG TABLET 1 TABLET NEEDED ORALLY ONE AT HS MDD1, NOTES: 01/07/162099 TAKING METOPROLOL TARTRATE 50 MG TABLET 1 TABLET WITH FOOD ORALLY TWICE A DAY, NOTES: 0700 TAKING GABAPENTIN 300 MG CAPSULE 1 ORALLY 1 CAP AT BEDTIME, NOTES: 01/06/172099 NOT-TAKING TIZANIDINE HCL 4 MG TABLET 1 TABLET NEEDED ORALLY BEFORE BEDTIME MAY REPEAR IN 4 HRS MDD2, NOTES: 01/06 NOT-TAKING IBUPROFEN 800 MG TABLET 1 TABLET WITH FOOD OR MILK ORALLY EVERY 6 HRS NEEDED FOR PAIN MDD3 NOT-TAKING IBUPROFEN 200 MG CAPSULE 3 ORALLY AM AND PM NOT-TAKING VALIUM 10 MG TABLET 1 ORALLY 1 TAB PRE PROC. MDD1 MEDICATION LIST REVIEWED AND RECONCILED WITH THE PATIENT PAST MEDICAL HISTORY HYPERTENSION DEPRESSION SLEEP APNEA, NEVER TESTED ALLERGIES N.K.D.A. VITAL SIGNS WT 176.6 LBS, HT 64 IN, BMI 30.31 INDEX, BP 118/67 MM HG, HR 65 /MIN, RR 18 /MIN, TEMP 98.3 F, OXYGEN SAT % 176.6, NA INITIALS SC 09:27, REVIEWED BY: VD. EXAMINATION GENERAL: PATIENT IS ALERT O X 3 AND COOPERATIVE. TENDERNESS IN THE LOWER BACK AND PARASPINAL MUSCLE GROUP. TENDERNESS IN THE LEFT SACROILIAC JOINT AREA. FLEXION OF THE BACK 15 DEGREES IN FLEXION AND EXTENSION AT 10 DEGREE. MORE COMPLAINTS WITH EXTENSION THEN FLEXION. LEFT LEG WEAKER. MRI DONE ON 01/18/2016 OF THE LUMBAR SPINE SHOWS A DISC HERNIATION AT L5-S1 AND FACET HYPERTROPHY. ASSESSMENTS SACROILIITIS, NOT ELSEWHERE CLASSIFIED - [id number] (PRIMARY) INTERVERTEBRAL DISC DISORDERS WITH RADICULOPATHY, LUMBAR REGION - M51.16 INTERVERTEBRAL DISC DISORDERS WITH RADICULOPATHY, LUMBOSACRAL REGION - M51.17 TREATMENT SACROILIITIS, NOT ELSEWHERE CLASSIFIED NOTES: WE DISCUSSED SEVERAL ISSUES WITH MRS. REYES PAIN MANAGEMENT CASE. AT THIS TIME THE PATIENT WILL CONTINUE WITH THE SAME MEDICATION REGIME BEFORE. PATIENT STATES THAT SHE USES IBUPROFEN FOR THE INFLAMMATION AND GABAPENTIN FOR THE NEUROPATHIC PAIN. WE DISCUSSED SEVERAL INJECTIONS THAT MAY AID THE PATIENT IN PAIN RELIEF INCLUDING A LUMBAR TRANSFORAMINAL. AT THIS TIME THE PATIENT STATES SHE DOES NOT WANT TO MOVE FORWARD WITH AN INJECTION BUT WILL CONSIDER DOING ON IN THE FUTURE. PATIENT WILL FOLLOW UP IN 2 MONTHS AND WAS ADVISED TO CALL IF THE PAIN SIGNIFICANTLY INCREASES. INSTRUCTIONS WERE GIVEN, QUESTIONS WERE ANSWERED, PATIENT REPORTS UNDERSTANDING AND AGREES WITH THE PLAN. I, ADRIENNE MERCEDES, DOCUMENTED THE ABOVE INFORMATION ACTING A SCRIBE FOR DR. SCOTT. I HAVE REVIEWED THE ABOVE DOCUMENT, WRITTEN BY ADRIENNE FARIA AND I VERIFY THAT IT IS ACCURATE. OTHERS NOTES: LUMBAR EPIDURAL INJECTION: RECOVERY AT HOME MATERIAL WAS PRINTED,WHAT IS LUMBAR EPIDURAL INJECTION? MATERIAL WAS PRINTED,LUMBAR EPIDURAL INJECTION: YOUR PROCEDURE MATERIAL WAS PRINTED. PROCEDURES PN WORKMANS' COMP OPINION IN YOUR OPINION, WAS THE INCIDENT THAT THE PATIENT DESCRIBED THE COMPETENT MEDICAL CAUSE OF THIS INJURY/ILLNESS? YES ARE THE PATIENT'S COMPLAINTS CONSISTENT WITH HIS/HER HISTORY OF THE INJURY/ILLNESS? YES IS THE PATIENT'S HISTORY OF THE INJURY/ILLNESS CONSISTENT WITH YOUR OBJECTIVE FINDING? YES WHAT IS THE PERCENTAGE OF TEMPORARY IMPAIRMENT? MODERATE TO MARKED = 66.7% IS THE PATIENT WORKING? NO DOCTOR ON SITE: GRECIA MAYES MD PROCEDURE CODES FA211 ESTABILISHED PATIENT [facility] FACILITY CHARGE G8427 DOC MEDS VERIFIED W/PT OR RE G8730 PAIN ASSESS POS TOOL F/U PLAN DOC DISPOSITION & COMMUNICATION FOLLOW UP 2 MONTHS ELECTRONICALLY SIGNED BY GRECIA SCOTT MD ON 03/13/2017 AT 03:54 PM EDT DISCLAIMER : THIS IS A VISIT SUMMARY EXTRACTED FROM THE [employer] CHART. IT IS NOT A COPY OF THE [employer] PROGRESS NOTE. MTDD
== END | disposition home or self-care (01) ==
LOC: M PAIN 10:00
PROVIDERS: ATTEND Anesthesiology
DX: G89.29 Other chronic pain (principal); M46.1 Sacroiliitis, not elsewhere classified; M51.16 Intervertebral disc disorders with radiculopathy, lumbar region; M51.17 Intervertebral disc disorders with radiculopathy, lumbosacral region; I10 Essential (primary) hypertension; F33.9 Major depressive disorder, recurrent, unspecified; Z79.899 Other long term (current) drug therapy

== ENCOUNTER → 2017-04-29 | Outpatient (CLI) | payer OTHER ==
--- NOTE | 2017-05-18 02:37 | ECWPNPC ---
PATIENT NAME: ONEYDA REYES : 1960 GENDER: FEMALE VISIT DATE: 04/29/2017 DISCHARGE DATE: 04/29/17 1039 VISIT LOCKED DATE TIME: PHYSICIAN: APOLINAR MCDONALD RESOURCE: APOLINAR MCDONALD REASON FOR APPOINTMENT 1. LOW BACK HISTORY OF PRESENT ILLNESS HISTORY OF PRESENT ILLNESS: PAIN THE PATIENT DESCRIBES THE PAIN... FALL RISK SCREENING: SCREENING :NO FALLS IN THE PAST YEAR GENERAL: 56 YEAR OLD FEMALE PATIENT WITH HISTORY OF CHRONIC BACK PAIN. PATIENT DESCRIBES THE PAIN BURNING, SHARP, STABBING, THROBBING, AND HAVING IT ALL THE TIME WITH A PAIN SCORE OF 10/10. 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 CURRENTLY THE PATIENT IS USING IBUPROFEN, TYLENOL, AND GABAPENTIN FOR PAIN AND STATES THAT THE MEDICATION KEEPS HER FUNCTIONAL AND MOBILE. PATIENT STATES THAT ANY TYPE OF MOVEMENT OR ACTIVITY INCREASES THE PAIN IN HER LOWER BACK AND MEDICATIONS AND REST HELP TO RELIEVE THE PAIN. CURRENT MEDICATIONS TAKING METOPROLOL TARTRATE 100 MG TABLET 3 ORALLY TWICE A DAY, NOTES: 01/07/17 07 TAKING TRIAMTERENE-HCTZ 37.5-25 MG TABLET 1 TABLET IN THE MORNING ORALLY ONCE A DAY, NOTES: 01/07/17 0700 TAKING LISINOPRIL 10 MG TABLET 1 TABLET ORALLY ONCE A DAY, NOTES: 01/07/17 07 TAKING CITALOPRAM HYDROBROMIDE 20 MG TABLET 1 TAB ORALLY ONCE A DAY, NOTES: 01/07/17 0700 TAKING ACETAMINOPHEN 500 MG CAPSULE TWO ORALLY AM AND PM, NOTES: 01/06/17 1700 TAKING SOMA 350 MG TABLET 1 TABLET NEEDED ORALLY ONE AT HS MDD1, NOTES: 01/07/16 2100 TAKING GABAPENTIN 300 MG CAPSULE 1 ORALLY 1 CAP AT BEDTIME, NOTES: 01/06/17 2100 DISCONTINUED METOPROLOL TARTRATE 50 MG TABLET 1 TABLET WITH FOOD ORALLY TWICE A DAY, NOTES: 0700 UNKNOWN TIZANIDINE HCL 4 MG TABLET 1 TABLET NEEDED ORALLY BEFORE BEDTIME MAY REPEAR IN 4 HRS MDD2, NOTES: 01/06 2100 UNKNOWN IBUPROFEN 800 MG TABLET 1 TABLET WITH FOOD OR MILK ORALLY EVERY 6 HRS NEEDED FOR PAIN MDD3 UNKNOWN IBUPROFEN 200 MG CAPSULE 3 ORALLY AM AND PM UNKNOWN VALIUM 10 MG TABLET 1 ORALLY 1 TAB PRE PROC. MDD1 MEDICATION LIST REVIEWED AND RECONCILED WITH THE PATIENT PAST MEDICAL HISTORY HYPERTENSION DEPRESSION SLEEP APNEA, NEVER TESTED ALLERGIES N.K.D.A. SOCIAL HISTORY GENERAL: TOBACCO USE ARE YOU A:NONSMOKER LEARNING BARRIERS / SPECIAL NEEDS ORIENTED TO PLAN OF CARE: PATIENT, PAIN MANAGEMENT PATIENT, ORIENTED TO PLAN OF CARE: PATIENT, PAIN MANAGEMENT PATIENT. NEW PATIENT PAIN DIARY TODAY'S VISITNOTES FROM 0-10, WHAT LEVEL IS YOUR PAIN TODAY?0 PAIN CLINIC PFS, CLERGY, PUBLIC HEALTH REFERRALS PFS REFERRAL NEEDED?NO CLERGY REFERRAL NEEDED?NO PUBLIC HEALTH REFERRAL NEEDED?NO WAS THE PROVIDER NOTIFIED OF ANY PERTINENT INFO?NO HAS THE PATIENT BEEN EDUCATED REGARDING HIS/HER PLAN OF CARE?YES HAS THE PATIENT BEEN EDUCATED REGARDING PAIN, THE RISK FOR PAIN, THE IMPORTANCE OF EFFECTIVE PAIN MANAGEMENT, AND THE PAIN ASSESSMENT PROCESS?YES REVIEW OF SYSTEMS REVIEWED BY: PROVIDER: APOLINAR NUNEZ . CONSTITUTIONAL: ANY CHANGE IN YOUR MEDICAL CONDITION? NO . CHILLS NO . FEVER NO . INFECTION: DO YOU HAVE NEW INFECTIONS? NO . DO YOU HAVE HISTORY OF MRSA? NO . MUSCULOSKELETAL: ANY NEW PATTERNS OF PAIN OR NUMBNESS? NO . GASTROENTEROLOGY: ANY NEW CHANGE IN BOWEL CONTROL? NO . GENITOURINARY: ANY NEW CHANGE IN BLADDER CONTROL? NO . IS THERE A CHANCE YOU COULD BE ? NO . HEMATOLOGY/LYMPH: DO YOU TAKE ANY BLOOD THINNERS? (FOR EXAMPLE- COUMADIN, PLAVIX, AGGRENOX, PLATEL, PRADAXA, OR XARELTO) NO . WHEN WAS YOUR LAST DOSE? DATE: TIME: . NEUROLOGY: HAVE YOU FALLEN IN THE PAST 6 MONTHS? NO . ANY NEW EXTREMITY NUMBNESS OR WEAKNESS? NO . CARDIOLOGY: DO YOU HAVE A PACEMAKER OR DEFIBRILLATOR? NO . RESPIRATORY: HAVE YOU BEEN SICK IN THE PAST WEEK? NO . FEVER NO . FLU LIKE SYMPTOMS? NO . COUGH NO . INTEGUMENTARY: DO YOU HAVE ANY RASHES OR OPEN SORES? NO . ALLERGIC/IMMUNO: ARE YOU ALLERGIC TO SHELLFISH OR IV DYE? NO . ANY NEW ALLERGIES? NO . PSYCHIATRIC: DO YOU HAVE THOUGHTS OF HURTING YOURSELF OR SOMEONE ELSE? NO . ARE YOU ABUSED, NEGLECTED, OR IN AN UNSAFE ENVIRONMENT? NO . ENDOCRINOLOGY: ARE YOU DIABETIC? NO . OTHER: DO YOU NEED ANY PRESCRIPTIONS? NO . IF YES, PLEASE LIST: ____ . ANY NEW PROBLEMS WITH YOUR MEDICATIONS? NO . WHEN DID YOU LAST EAT? ____ . WHEN DID YOU LAST DRINK? ____ . WHAT DID YOU LAST DRINK? ____ . NAME OF PERSON DRIVING YOU HOME? ____ . DO YOU HAVE ANY OTHER QUESTIONS OR CONCERNS NO . VITAL SIGNS WT 171 LBS, HT 64 IN, BMI 29.35 INDEX, BP 118/71 MM HG, HR 66 /MIN, RR 18 /MIN, TEMP 97.9 F, OXYGEN SAT % 97, SAFE IN ENV? (Y/N) YES, REVIEWED BY: VD. EXAMINATION LUMBAR SPINE/LOWER BACK: INSPECTION:SIGNIFICANT MUSCLE SPASM. PALPATION:VERTEBRAL SPINE TENDERNESS, PARASPINAL TENDERNESS. STRAIGHT LEG RAISING TEST:POSITIVE AT 30 DEGREES ON LEFT. MOTOR SYSTEM:5/5 BLE. SENSORY EXAM:NORMAL. REFLEXES:2/4 AND SYMMETRIC BLE. GENERAL EXAMINATION: LUNGS:LUNG SOUNDS ARE CLEAR. HEART:HEART RATE REGULAR. MUSCULOSKELETAL:*. DIAGNOSTIC: . ASSESSMENTS LUMBAR DISC HERNIATION - M51.26 (PRIMARY) LUMBAR RADICULOPATHY - M54.16 TREATMENT LUMBAR DISC HERNIATION CONTINUE ACETAMINOPHEN CAPSULE, 500 MG, TWO, ORALLY, AM AND PM, NOTES: 01/06/17 1700 CONTINUE SOMA TABLET, 350 MG, 1 TABLET NEEDED, ORALLY, ONE AT HS MDD1, NOTES: 01/07/16 2100 CONTINUE GABAPENTIN CAPSULE, 300 MG, 1, ORALLY, 1 CAP AT BEDTIME, NOTES: 01/06/17 2100 NOTES: REQUEST SURGICAL CONSULT W/C. PROCEDURES PN WORKMANS' COMP OPINION IN YOUR OPINION, WAS THE INCIDENT THAT THE PATIENT DESCRIBED THE COMPETENT MEDICAL CAUSE OF THIS INJURY/ILLNESS? YES ARE THE PATIENT'S COMPLAINTS CONSISTENT WITH HIS/HER HISTORY OF THE INJURY/ILLNESS? YES IS THE PATIENT'S HISTORY OF THE INJURY/ILLNESS CONSISTENT WITH YOUR OBJECTIVE FINDING? YES WHAT IS THE PERCENTAGE OF TEMPORARY IMPAIRMENT? MODERATE TO MARKED = 66.7% IS THE PATIENT WORKING? UNKNOWN DOCTOR ON SITE: GRECIA MAYES MD PROCEDURE CODES FA211 ESTABILISHED PATIENT [facility] FACILITY CHARGE DISPOSITION & COMMUNICATION FOLLOW UP 2 MONTHS (REASON: REQUEST SURGICAL CONSULT W/C) ELECTRONICALLY SIGNED BY ENRIQUE BUTT ON 05/17/2017 AT 07:23 AM EDT DISCLAIMER : THIS IS A VISIT SUMMARY EXTRACTED FROM THE [employer] CHART. IT IS NOT A COPY OF THE [employer] PROGRESS NOTE. RC
== END ==
LOC: M PAIN 09:45
PROVIDERS: ATTEND Nurse Practitioner Family
DX: M51.26 Other intervertebral disc displacement, lumbar region (principal); M54.16 Radiculopathy, lumbar region; G89.29 Other chronic pain; I10 Essential (primary) hypertension; F32.9 Major depressive disorder, single episode, unspecified; Z79.899 Other long term (current) drug therapy

== ENCOUNTER → 2017-07-13 | Outpatient (CLI) | payer OTHER | LOC: M PAIN 10:00 | DX: G89.29 Other chronic pain (principal); M51.26 Other intervertebral disc displacement, lumbar region; M54.16 Radiculopathy, lumbar region; I10 Essential (primary) hypertension; F32.9 Major depressive disorder, single episode, unspecified; Z79.891 Long term (current) use of opiate analgesic; Z79.899 Other long term (current) drug therapy | CPT/HCPCS: G0463 ==